=== PATIENT | female | born 1955 | race Caucasian/White ===

== ENCOUNTER → 2017-01-28 | Outpatient (CLI) | payer MEDICAID ==
[2017-01-28 10:00] LABS: Basophils # (A) 0.1 k/uL (0-0.2); Basophils % (A) 1 %; CH 30.5; CHCM 33.4; Eosinophils # (A) 0.2 k/uL (0-0.7); Eosinophils % (A) 2 %; HCT 42.3 % (34.0-46.0); HDW 2.36; HGB 13.8 gm/dL (11.4-16.0); Luc # (Auto) 0.17; Luc % (Auto) 2; Lymphocytes % (A) 22 %; MCH 29.9 pg (25.0-35.0); MCHC 32.6 g/dL (31.0-37.0); MCV 91.8 fL (80.0-100.0); Mean Platelet Volume 6.7; Monocytes # (A) 0.4 k/uL (0-1.0); Monocytes % (A) 4 %; Neutrophils % (A) 69 %; RBC 4.61 m/uL (3.80-5.40); RDW 14.2 % (11.5-15.5); WBC 8.7 k/uL (3.8-10.6); WBC (Perox) 8.61
[2017-01-28 10:24] LABS: ALT 30 U/L (9-52); AST 23 U/L (14-36); Alkaline Phosphatase 93 U/L (38-126); Anion Gap 12 mmol/L; Blood Urea Nitrogen 15 mg/dL (7-17); Calcium 9.8 mg/dL (8.4-10.2); Carbon Dioxide 27 mmol/L (22-30); Chloride 103 mmol/L (98-107); Cholesterol 227 mg/dL (<200); Glucose 100 mg/dL (74-99); HDL Cholesterol 75 mg/dL (40-60); Non-African American GFR(MDRD) >60 (>60 ml/min/1.73 sqM); Potassium 4.7 mmol/L (3.5-5.1); Sodium 142 mmol/L (137-145); Total Bilirubin 0.5 mg/dL (0.2-1.3); Total Protein 7.3 g/dL (6.3-8.2); Triglycerides 106 mg/dL (<150)
== END | disposition home or self-care (01) ==
LOC: LABWHC1 09:17
PROVIDERS: ATTEND Internal Medicine Geriatric Medicine
DX: E78.5 Hyperlipidemia, unspecified (principal); E55.9 Vitamin D deficiency, unspecified; E06.3 Autoimmune thyroiditis
CPT/HCPCS: 36415; 80053; 80061; 82306; 84439; 84443; 85025

== ENCOUNTER → 2017-02-12 | Outpatient (CLI) | payer MEDICAID ==
--- NOTE | 2017-02-12 09:25 | USB ---
Reason for exam: follow-up at short interval from prior study. History: Patient is postmenopausal and has history of breast cancer at age 50. Benign US biopsy breast VAD RT of the right breast, July 19, 2015. Silicone gel implant in the left breast, 2011. Reduction of the right breast, 2011. Malignant lumpectomy of the left breast, April 03, 2006. Malignant excisional biopsy of the left breast, March 16, 2006. Benign left US cyst aspiration of the left breast, February 19, 2006. Malignant US left guided mammotome of the left breast, February 12, 2006. Stereotactic core biopsy, August 11, 2002. Reduction of the right breast. Radiation therapy. Took hormonal contraceptives for 3 years beginning at age 21. Took tamoxifen for 5 years beginning at age 51. Physical Findings: Nurse did not find any significant physical abnormalities on exam. US Breast LT Left breast ultrasound includes all four quadrants, the retroareolar region and axilla. Finding demonstrates a 2.3 x 0.4 x 0.9cm oval, cystic lesion at 3 o'clock, seen on previous, adjacent to implant without internal change. These results were verbally communicated with the patient and result sheet given to the patient on 02/12/17. ASSESSMENT: Benign, BI-RAD 2 RECOMMENDATION: Return to routine screening mammogram schedule for both breasts. Back on schedule.
== END | disposition home or self-care (01) ==
LOC: RADUSWWP 08:23
PROVIDERS: ATTEND Internal Medicine Geriatric Medicine
DX: Z08 Encounter for follow-up examination after completed treatment for malignant neoplasm (principal); Z85.3 Personal history of malignant neoplasm of breast

== ENCOUNTER → 2018-01-05 | Outpatient (CLI) | payer MEDICAID ==
[2018-01-05 10:37] LABS: Basophils # (A) 0.1 k/uL (0-0.2); Basophils % (A) 1 %; Eosinophils # (A) 0.2 k/uL (0-0.7); Eosinophils % (A) 3 %; HCT 40.7 % (34.0-46.0); HGB 13.3 gm/dL (11.4-16.0); Lymphocytes # (A) 1.6 k/uL (1.0-4.8); Lymphocytes % (A) 23 %; MCH 29.2 pg (25.0-35.0); MCHC 32.6 g/dL (31.0-37.0); MCV 89.5 fL (80.0-100.0); Mean Platelet Volume 6.6; Monocytes # (A) 0.5 k/uL (0-1.0); Monocytes % (A) 6 %; Neutrophils # (A) 4.6 k/uL (1.3-7.7); Neutrophils % (A) 65 %; Platelet Count 303 k/uL (150-450); RBC 4.55 m/uL (3.80-5.40); RDW 14.5 % (11.5-15.5)
[2018-01-05 11:01] LABS: Albumin 4.7 g/dL (3.5-5.0); Calcium 9.8 mg/dL (8.4-10.2); Potassium 4.7 mmol/L (3.5-5.1); Total Bilirubin 0.4 mg/dL (0.2-1.3); Total Protein 7.2 g/dL (6.3-8.2)
[2018-01-05 11:17] LABS: T4, Free (Free Thyroxine) 0.92 ng/dL (0.78-2.19)
[2018-01-05 18:22] LABS: Hemoglobin A1C 5.7 % (4.0-6.0)
== END | disposition home or self-care (01) ==
LOC: LABWHC1 09:16
PROVIDERS: ATTEND Internal Medicine Geriatric Medicine
DX: Z00.00 Encounter for general adult medical examination without abnormal findings (principal); E55.9 Vitamin D deficiency, unspecified; E06.3 Autoimmune thyroiditis; E78.5 Hyperlipidemia, unspecified; R79.9 Abnormal finding of blood chemistry, unspecified
CPT/HCPCS: 36415; 80053; 80061; 82306; 83036; 84439; 84443; 85025

== ENCOUNTER → 2018-01-07 | Day surgery (SDC) | payer MEDICAID ==
[2018-01-06 08:33] VITALS: BMI 27.8
[~2018-01-07] MED LIST: LACTATED RINGERS 1,000 ML IV SCH; LIDOCAINE 1% 20 ML VIAL (10MG/ML) FOR IV START INTRADERMA PRN; LIDOCAINE 1% INJ 10MG/ML (20 ML MDV) ONE; MIDAZOLAM 2 MG/2 ML VIAL IV PRN; PROPOFOL 10 MG/ML 20 ML VIAL IV ONE
[2018-01-07 10:00] VITALS: RESP 18; TEMP 97
--- NOTE | 2018-01-07 10:47 | P.PCN ---
Date of Procedure: 01/07/18 Procedure(s) Performed: BRIEF HISTORY: Patient is a 62-year-old pleasant white female, scheduled for an elective colonoscopy as a part of screening for colorectal neoplasia. She has family history of colon cancer diagnosed in her brother at age 41. PROCEDURE PERFORMED: Colonoscopy with snare polypectomy. PREOPERATIVE DIAGNOSIS: screening for colon cancer/family history of colon cancer IV sedation per Anesthesia. PROCEDURE: After informed consent was obtained, the patient, was brought into the endoscopy unit. IV sedation was administered by Anesthesia under continuous monitoring. Digital rectal examination was normal. Initially the Olympus CF- 160 flexible video colonoscope was then inserted in the rectum, gradually advanced into the cecum without any difficulty. Careful examination was performed as the scope was gradually being withdrawn. Ileocecal valve and the appendiceal orifice were visualized and appeared normal. Prep was excellent. Mucosa of the cecum, ascending colon appeared normal. In the hepatic flexure there were 3 polyps noted. Each measured 5 mm and 1 cm in size which were removed by snare polypectomy. The polyp measured 2 cm which was linear and flat removed by piecemeal snare polypectomy. The rest of the, transverse colon , descending colon, sigmoid colon, and rectum appeared normal. Retroflexion was performed in the rectum and no lesions were seen. The patient tolerated the procedure well. IMPRESSION: 2 cm linear flat polyp, 5 mm and 1 cm sessile polyps in the hepatic flexure status post polypectomy Rest of the colon appeared normal RECOMMENDATIONS: Findings of this examination were discussed with the patient well as her family. She was advised to follow with the biopsy doesn't have a repeat colonoscopy in 3 years..
[2018-01-07 11:03] VITALS: BP 149/77; PULSE 66
== END ==
LOC: ORWHC2ENDO 09:18
PROVIDERS: ATTEND Internal Medicine Gastroenterology
DX: Z12.11 Encounter for screening for malignant neoplasm of colon (principal); D12.3 Benign neoplasm of transverse colon; K63.5 Polyp of colon; Z80.0 Family history of malignant neoplasm of digestive organs; E07.9 Disorder of thyroid, unspecified; F39 Unspecified mood [affective] disorder; Z79.890 Hormone replacement therapy; Z79.899 Other long term (current) drug therapy
CPT/HCPCS: 88305; 45385; J2001; J2704; 45380

== ENCOUNTER → 2018-01-29 | Outpatient (CLI) | payer MEDICAID ==
--- NOTE | 2018-02-02 08:02 | MM ---
Reason for exam: screening (asymptomatic). Last mammogram was performed 1 year and 6 months ago. History: Patient is postmenopausal and has history of breast cancer at age 50. Benign US biopsy breast VAD RT of the right breast, July 19, 2015. Silicone gel implant in the left breast, 2011. Reduction of the right breast, 2011. Malignant lumpectomy of the left breast, April 03, 2006. Malignant excisional biopsy of the left breast, March 16, 2006. Benign left US cyst aspiration of the left breast, February 19, 2006. Malignant US left guided mammotome of the left breast, February 12, 2006. Stereotactic core biopsy, August 11, 2002. Reduction of the right breast. Radiation therapy. Took hormonal contraceptives for 3 years beginning at age 21. Took tamoxifen for 5 years beginning at age 51. Physical Findings: A clinical breast exam by your physician is recommended on an annual basis and results should be correlated with mammographic findings. MG 3D Screen Mammo Imp/Cad Bilateral CC and MLO view(s) were taken. ID view(s) were taken of the left breast. Prior study comparison: July 16, 2016, bilateral MG 3d screen mammo imp/cad. July 19, 2015, right breast MG diagnostic mammo RT wo CAD. There are scattered fibroglandular densities. Previous mammotome biopsy in the right breast. There is chronic nodularity in the right breast. Post surgical changes left breast with silicone breast implant. No significant changes when compared with prior studies. ASSESSMENT: Benign, BI-RAD 2 RECOMMENDATION: Routine screening mammogram of both breasts in 1 year.
== END | disposition home or self-care (01) ==
LOC: RADMAMWWP 08:27
PROVIDERS: ATTEND Internal Medicine Geriatric Medicine
DX: Z12.31 Encounter for screening mammogram for malignant neoplasm of breast (principal)
CPT/HCPCS: 77063; 77067

== ENCOUNTER → 2018-12-22 | Outpatient (CLI) | payer MEDICAID ==
[2018-12-22 16:47] LABS: Anti-DNA, DS unit <1.0 IU/mL; Centromere Antibody Interp NEGATIVE (NEGATIVE); DNA Double-Stranded NEGATIVE (NEGATIVE); RNP <0.2 AI; Scleroderma SC-70 Ab <0.2 AI
[2018-12-22 16:57] LABS: Anion Gap 10.6 mmol/L (4.00-12.00); C Reactive Protein 1.6 mg/dL (0.0-0.8); Carbon Dioxide 21.4 mmol/L (21.6-31.8); Potassium 4.6 mmol/L (3.5-5.5)
[2018-12-22 17:05] LABS: T4, Free (Free Thyroxine) 1.2 ng/dL (0.80-1.80)
[2018-12-22 17:31] LABS: Rheumatoid Factor 7 IU/mL (0-15)
== END | disposition home or self-care (01) ==
LOC: LABWHC1 08:16
PROVIDERS: ATTEND Internal Medicine Critical Care Medicine
DX: M62.9 Disorder of muscle, unspecified (principal)
CPT/HCPCS: 36415; 80048; 82550; 84439; 84443; 85652; 86038; 86140; 86225; 86235; 86431

== ENCOUNTER → 2019-01-01 | Outpatient (CLI) | payer MEDICAID | END | disposition home or self-care (01) | LOC: LABWHC1 11:02 | PROVIDERS: ATTEND Internal Medicine | DX: E06.3 Autoimmune thyroiditis (principal) | CPT/HCPCS: 36415; 84445; 86376 ==

== ENCOUNTER → 2019-01-10 | Outpatient (CLI) | payer MEDICAID ==
--- NOTE | 2019-01-10 19:14 | US ---
EXAMINATION TYPE: US thyroid st tissue head/neck DATE OF EXAM: 01/10/2019 COMPARISON: NONE CLINICAL HISTORY: E06.3 Autoimmune thyroiditis. autoimmune thyroiditis GLAND SIZE: Right Lobe: 2.6 x 1.1 x 1.3 cm Overall Parenchyma: heterogenous Left Lobe: 2.7 x 1.1 x 1.0 cm Overall Parenchyma: heterogeneous Isthmus Thickness: 0.2 cm NODULES RIGHT: # of nodules measured on right: 0 LEFT: # of nodules measured on left: 0 ISTHMUS: # of nodules measured in the isthmus: 0 Bilateral neck scanned, no evidence of lymphadenopathy. IMPRESSION: Heterogenous thyroid gland is in keeping with this patient's provided history of thyroiditis. No disc rete nodule is seen.
== END | disposition home or self-care (01) ==
LOC: RADUSWWP 16:59
PROVIDERS: ATTEND Internal Medicine
DX: E06.3 Autoimmune thyroiditis (principal)
CPT/HCPCS: 76536

== ENCOUNTER → 2019-01-31 | Outpatient (CLI) | payer MEDICAID ==
--- NOTE | 2019-02-01 09:12 | MM ---
Reason for exam: screening (asymptomatic). Last mammogram was performed 1 year ago. History: Patient is postmenopausal and has history of breast cancer at age 50. Benign US biopsy breast VAD RT of the right breast, July 19, 2015. Silicone gel implant in the left breast, 2011. Reduction of the right breast, 2011. Malignant lumpectomy of the left breast, April 03, 2006. Malignant excisional biopsy of the left breast, March 16, 2006. Benign left US cyst aspiration of the left breast, February 19, 2006. Malignant US left guided mammotome of the left breast, February 12, 2006. Stereotactic core biopsy, August 11, 2002. Reduction of the right breast. Radiation therapy. Took hormonal contraceptives for 3 years beginning at age 21. Took tamoxifen for 5 years beginning at age 51. Physical Findings: A clinical breast exam by your physician is recommended on an annual basis and results should be correlated with mammographic findings. MG 3D Screen Mammo Imp/Cad Bilateral CC and MLO view(s) were taken. Prior study comparison: January 29, 2018, bilateral MG 3d screen mammo imp/cad. July 16, 2016, bilateral MG 3d screen mammo imp/cad. The breast tissue is heterogeneously dense. This may lower the sensitivity of mammography. Finding #1: Architectural distortion in the left breast consistent with previous surgery. Finding #2: There are typically benign calcifications in both breasts. There are benign appearing calcifications. No significant changes in finding since January 29, 2018 and July 16, 2016. ASSESSMENT: Benign, BI-RAD 2 RECOMMENDATION: Routine screening mammogram of both breasts in 1 year.
== END | disposition home or self-care (01) ==
LOC: RADMAMWWP 12:54
PROVIDERS: ATTEND Internal Medicine
DX: Z12.31 Encounter for screening mammogram for malignant neoplasm of breast (principal)
CPT/HCPCS: 77063; 77067

== ENCOUNTER → 2019-02-18 | Outpatient (CLI) | payer MEDICAID ==
[2019-02-18 16:55] LABS: African American GFR (CKD) 61.9 (60.0-200.0); Albumin 4.5 g/dL (3.80-4.90); Albumin/Globulin Ratio 2.5 (1.60-3.17); BUN/Creat Ratio 18.18 Ratio (12.00-20.00); Calcium 9.2 mg/dL (8.7-10.3); Globulin 1.8 g/dL (1.6-3.3); LDL Cholesterol,Calculated 134.2 mg/dL (0.0-131.0); Potassium 4.3 mmol/L (3.5-5.5); Total Bilirubin 0.2 mg/dL (0.3-1.2); Total Protein 6.3 g/dL (6.2-8.2); VLDL Calculation 37.8 mg/dL (5.00-40.00)
== END | disposition home or self-care (01) ==
LOC: LABWHC1 08:08
PROVIDERS: ATTEND Internal Medicine
DX: E78.5 Hyperlipidemia, unspecified (principal); E06.3 Autoimmune thyroiditis; M35.3 Polymyalgia rheumatica; I10 Essential (primary) hypertension
CPT/HCPCS: 36415; 80053; 80061; 84443; 85652; 86140

== ENCOUNTER → 2019-08-23 | Outpatient (CLI) | payer MEDICAID ==
[2019-08-23 08:53] LABS: Anisocytosis Slight; Basophils % (A) 0 %; Eosinophils # (A) 0.3 k/uL (0-0.7); Eosinophils % (A) 4 %; HCT 31.7 % (34.0-46.0); HGB 9.2 gm/dL (11.4-16.0); Hypochromasia Marked; Lymphocytes # (A) 1.5 k/uL (1.0-4.8); Lymphocytes % (A) 21 %; MCH 22.3 pg (25.0-35.0); MCV 76.9 fL (80.0-100.0); Mean Platelet Volume 6.9; Microcytosis Slight; Monocytes # (A) 0.3 k/uL (0-1.0); Monocytes % (A) 5 %; Neutrophils # (A) 4.8 k/uL (1.3-7.7); Neutrophils % (A) 68 %; Platelet Count 375 k/uL (150-450); RBC 4.12 m/uL (3.80-5.40); RDW 16.5 % (11.5-15.5)
[2019-08-23 12:02] LABS: Erythrocyte Sedimentation Rate 17 mm/hr (0-20)
[2019-08-23 17:10] LABS: African American GFR (CKD) 69.4 (60.0-200.0); Albumin 4.5 g/dL (3.80-4.90); Anion Gap 8.5 mmol/L (4.00-12.00); C Reactive Protein 0.7 mg/dL (0.0-0.8); Carbon Dioxide 24.5 mmol/L (21.6-31.8); Chol/HDL Ratio 3.78; Globulin 1.5 g/dL (1.6-3.3); Non-African American GFR(CKD) 59.9 (60.0-200.0); Potassium 4.3 mmol/L (3.5-5.5); Total Bilirubin 0.3 mg/dL (0.3-1.2)
[2019-08-23 17:17] LABS: T4, Free (Free Thyroxine) 1.3 ng/dL (0.80-1.80)
[2019-08-23 17:26] LABS: Hemoglobin A1C 6.1 % (4.0-6.0)
== END | disposition home or self-care (01) ==
LOC: LABWHC1 08:05
PROVIDERS: ATTEND Internal Medicine Geriatric Medicine
DX: Z00.00 Encounter for general adult medical examination without abnormal findings (principal); M35.3 Polymyalgia rheumatica; E78.5 Hyperlipidemia, unspecified; R73.9 Hyperglycemia, unspecified; E06.3 Autoimmune thyroiditis; E55.9 Vitamin D deficiency, unspecified
CPT/HCPCS: 36415; 80053; 80061; 82306; 83036; 84439; 84443; 85025; 85652; 86140

== ENCOUNTER → 2020-04-10 | Outpatient (CLI) | payer OTHER ==
--- NOTE | 2020-04-11 16:27 | BD ---
EXAMINATION TYPE: Axial Bone Density DATE OF EXAM: 04/10/2020 COMPARISON: NONE CLINICAL HISTORY: Postmenopausal screening Height: 63 Weight: 152.8 FRAX RISK QUESTIONS: Alcohol (3 or more units per day): no Family History (Parent hip fracture): no Glucocorticoids (More than 3mos): no (Ex: prednisone, prednisolone, methylprednisolone, dexamethasone, and hydrocortisone). History of Fracture in Adulthood: no Secondary Osteoporosis: 1. Type 1 Diabetes: no 2. Hyperthyroidism: no 3. Menopause before 45: no 4. Malnutrition: no 5. Chronic liver disease: no Rheumatoid Arthritis: no Current Tobacco Use: yes RISK FACTORS HISTORY OF: Family History of Osteoporosis: no Active: yes Diet low in dairy products/other sources of calcium: yes Postmenopausal woman: age 50 Lost more than 2 inches in height since high school: no MEDICATIONS: iron pill, vitamins , Thyroid Medications: thyroid How Lon years Additional History: EXAM MEASUREMENTS: Bone mineral densitometry was performed using the [employer] System. Bone mineral density as measured about the Lumbar spine is: ----- L1-L4(G/cm2): 1.315 T Score Values are as follows: ----- L2: 0.8 ----- L3: 1.4 ----- L4: 0.9 ----- L1-L4: 1.1 Bone mineral density has: decreased -2.1 % since study of: 06.29.2015 Bone mineral density about the R hip (g/cm2): 0.965 Bone mineral density about the L hip (g/cm2): 0.983 T Score values are as follows: -----R Neck: -0.5 -----L Neck: -0.4 -----R Total: 0.0 -----L Total: 0.4 Bone mineral density has: decreased -3.7 % since study of: 06.29.2015 IMPRESSION: Normal (Values between +1 and -1 indicate normal bone mass). Consider repeating this study in 5 year s or sooner if there is some new clinical indication. NOTE: T-SCORE=SD OF THE YOUNG ADULT MEAN.
--- NOTE | 2020-04-12 08:42 | MM ---
Reason for exam: screening (asymptomatic). Last mammogram was performed 1 year and 2 months ago. History: Patient is postmenopausal and has history of breast cancer at age 50. Benign US biopsy breast VAD RT of the right breast, July 19, 2015. Silicone gel implant in the left breast, 2011. Reduction of the right breast, 2011. Malignant lumpectomy of the left breast, April 03, 2006. Malignant excisional biopsy of the left breast, March 16, 2006. Benign left US cyst aspiration of the left breast, February 19, 2006. Malignant US left guided mammotome of the left breast, February 12, 2006. Stereotactic core biopsy, August 11, 2002. Reduction of the right breast. Radiation therapy. Took hormonal contraceptives for 3 years beginning at age 21. Took tamoxifen for 5 years beginning at age 51. Physical Findings: A clinical breast exam by your physician is recommended on an annual basis and results should be correlated with mammographic findings. MG 3D Screen Mammo Imp/Cad Bilateral CC, MLO, and ID view(s) were taken. Prior study comparison: January 31, 2019, bilateral MG 3d screen mammo imp/cad. January 29, 2018, bilateral MG 3d screen mammo imp/cad. February 12, 2017, left breast US breast LT. July 19, 2015, right breast MG diagnostic mammo RT wo CAD. There are scattered fibroglandular densities. There is chronic nodularity in the right breast. Post surgical and post therapy change left breast with a retropectoral silicone implant. Increasing calcifications central posterior left breast. ASSESSMENT: Incomplete: need additional imaging evaluation, BI-RAD 0 RECOMMENDATION: Special view mammogram of the left breast. (Magnification) If lesion persists on supplemental views, image directed ultrasound is recommended. [facility] will attempt to contact patient to return for supplemental views and ultrasound if indicated.
== END | disposition home or self-care (01) ==
LOC: RADMAMWWP 15:25
PROVIDERS: ATTEND Obstetrics & Gynecology
DX: Z12.31 Encounter for screening mammogram for malignant neoplasm of breast (principal); N95.1 Menopausal and female climacteric states
CPT/HCPCS: 77063; 77067; 77080

== ENCOUNTER → 2020-05-17 | Outpatient (CLI) | payer OTHER ==
--- NOTE | 2020-05-18 10:05 | MM ---
Reason for exam: additional evaluation requested from abnormal screening. Last mammogram was performed 1 month ago. History: Patient is postmenopausal and has history of breast cancer at age 50. Benign US biopsy breast VAD RT of the right breast, July 19, 2015. Silicone gel implant in the left breast, 2011. Reduction of the right breast, 2011. Malignant lumpectomy of the left breast, April 03, 2006. Malignant excisional biopsy of the left breast, March 16, 2006. Benign left US cyst aspiration of the left breast, February 19, 2006. Malignant US left guided mammotome of the left breast, February 12, 2006. Stereotactic core biopsy, August 11, 2002. Reduction of the right breast. Radiation therapy. Took hormonal contraceptives for 3 years beginning at age 21. Took tamoxifen for 5 years beginning at age 51. Physical Findings: Nurse did not find any significant physical abnormalities on exam. MG 3D Work Up W/Cad LT CC with magnification, MLO with magnification, and LM view(s) were taken of the left breast. Prior study comparison: April 10, 2020, bilateral MG 3d screen mammo imp/cad. January 31, 2019, bilateral MG 3d screen mammo imp/cad. Finding: There are typically benign segmental, linear calcifications in the left breast. No significant changes in finding since April 10, 2020 and January 31, 2019. These results were verbally communicated with the patient and result sheet given to the patient on 05/17/20. ASSESSMENT: Benign, BI-RAD 2 RECOMMENDATION: Return to routine screening mammogram schedule for both breasts.
== END | disposition home or self-care (01) ==
LOC: RADMAMWWP 13:47
PROVIDERS: ATTEND Obstetrics & Gynecology
DX: R92.8 Other abnormal and inconclusive findings on diagnostic imaging of breast (principal)
CPT/HCPCS: 77061; 77065

== ENCOUNTER → 2021-05-20 | Outpatient (CLI) | payer MEDICARE ==
--- NOTE | 2021-05-21 11:14 | MM ---
Reason for exam: screening (asymptomatic). Last mammogram was performed 1 year ago. History: Patient is postmenopausal and has history of breast cancer at age 50. Benign US biopsy breast VAD RT of the right breast, July 19, 2015. Silicone gel implant in the left breast, 2011. Reduction of the right breast, 2011. Malignant lumpectomy of the left breast, April 03, 2006. Malignant excisional biopsy of the left breast, March 16, 2006. Benign left US cyst aspiration of the left breast, February 19, 2006. Malignant US left guided mammotome of the left breast, February 12, 2006. Stereotactic core biopsy, August 11, 2002. Reduction of the right breast. Radiation therapy. Took hormonal contraceptives for 3 years beginning at age 21. Took tamoxifen for 5 years beginning at age 51. Physical Findings: A clinical breast exam by your physician is recommended on an annual basis and results should be correlated with mammographic findings. MG 3D Screen Mammo Imp/Cad Bilateral CC, MLO, and ID view(s) were taken. Prior study comparison: April 10, 2020, bilateral MG 3d screen mammo imp/cad. January 31, 2019, bilateral MG 3d screen mammo imp/cad. January 29, 2018, bilateral MG 3d screen mammo imp/cad. July 16, 2016, bilateral MG 3d screen mammo imp/cad. There are scattered fibroglandular densities. No significant changes when compared with prior studies. ASSESSMENT: Benign, BI-RAD 2 RECOMMENDATION: Routine screening mammogram of both breasts in 1 year.
== END | disposition home or self-care (01) ==
LOC: RADMAMWWP 11:35
PROVIDERS: ATTEND Obstetrics & Gynecology
DX: Z12.31 Encounter for screening mammogram for malignant neoplasm of breast (principal); Z85.3 Personal history of malignant neoplasm of breast
CPT/HCPCS: 77063; 77067

== ENCOUNTER → 2021-07-29 | Outpatient (CLI) | payer MEDICARE ==
[2021-07-29 15:48] LABS: Basophils # (A) 0.05 X 10*3/uL (0.00-0.10); Basophils % (A) 0.6 %; Eosinophils # (A) 0.22 X 10*3/uL (0.04-0.35); Eosinophils % (A) 2.7 %; HCT 39.5 % (37.2-46.3); HGB 12.1 g/dL (12.0-15.0); Lymphocytes # (A) 2.09 X 10*3/uL (0.90-5.00); Lymphocytes % (A) 25.9 %; MCHC 30.6 g/dL (32.0-37.0); MCV 94.7 fL (80.0-97.0); Mean Platelet Volume 9.9 fL (9.5-12.2); Monocytes # (A) 0.57 X 10*3/uL (0.20-1.00); Monocytes % (A) 7.1 %; Neutrophils # (A) 5.11 X 10*3/uL (1.80-7.70); Neutrophils % (A) 63.2 %; Platelet Count 301 X 10*3/uL (140-440); RBC 4.17 X 10*6/uL (4.10-5.20); RDW 14.4 % (11.5-14.5); WBC 8.08 X 10*3/uL (4.50-10.00)
[2021-07-29 16:28] LABS: ALT 23 U/L (8-44); AST 22 U/L (13-35); African American GFR (CKD) 84.9 (60.0-200.0); Albumin 4.5 g/dL (3.8-4.9); Albumin/Globulin Ratio 2.51 (1.60-3.17); Alkaline Phosphatase 101 U/L (41-126); BUN/Creat Ratio 17.92 Ratio (12.00-20.00); Calcium 9.3 mg/dL (8.7-10.3); Carbon Dioxide 24.3 mmol/L (20.0-27.5); Chloride 106 mmol/L (96-109); Chol/HDL Ratio 3.94 Ratio; Globulin 1.8 g/dL (1.6-3.3); Glucose 104 mg/dL (70-110); LDL Cholesterol,Calculated 166.9 mg/dL (0.0-131.0); Non-African American GFR(CKD) 73.3 (60.0-200.0); Potassium 4.5 mmol/L (3.5-5.5); Sodium 143 mmol/L (135-145); Total Protein 6.4 g/dL (6.2-8.2)
== END | disposition home or self-care (01) ==
LOC: LABWHC1 10:18
PROVIDERS: ATTEND Internal Medicine Geriatric Medicine
DX: E06.3 Autoimmune thyroiditis (principal); E78.5 Hyperlipidemia, unspecified
CPT/HCPCS: 36415; 80053; 80061; 84439; 84443; 85025

== ENCOUNTER → 2022-02-28 | Outpatient (CLI) | payer MEDICARE ==
[2022-02-28 14:17] LABS: Basophils # (A) 0.08 X 10*3/uL (0.00-0.10); Eosinophils # (A) 0.25 X 10*3/uL (0.04-0.35); Eosinophils % (A) 3.2 %; HCT 39.3 % (37.2-46.3); Immature Grans, Automated 0.5 %; Lymphocytes # (A) 2.46 X 10*3/uL (0.90-5.00); Lymphocytes % (A) 31.9 %; MCH 28.4 pg (27.0-32.0); MCHC 30.5 g/dL (32.0-37.0); MCV 92.9 fL (80.0-97.0); Mean Platelet Volume 10.7 fL (9.5-12.2); Monocytes # (A) 0.65 X 10*3/uL (0.20-1.00); Monocytes % (A) 8.4 %; NRBC Per 100 WBC 0 /100 WBCS (0.0-0.0); Neutrophils # (A) 4.22 X 10*3/uL (1.80-7.70); Platelet Count 352 X 10*3/uL (140-440); RBC 4.23 X 10*6/uL (4.10-5.20); RDW 15.9 % (11.5-14.5)
[2022-02-28 14:42] LABS: ALT 19 U/L (8-44); AST 24 U/L (13-35); African American GFR (CKD) 77.2 (60.0-200.0); Albumin 4.6 g/dL (3.8-4.9); Alkaline Phosphatase 89 U/L (41-126); BUN/Creat Ratio 18.11 Ratio (12.00-20.00); Blood Urea Nitrogen 16.3 mg/dL (9.0-27.0); Calcium 9.3 mg/dL (8.7-10.3); Carbon Dioxide 21.1 mmol/L (20.0-27.5); Chloride 106 mmol/L (96-109); Chol/HDL Ratio 3.76 Ratio; Globulin 2.3 g/dL (1.6-3.3); Glucose 109 mg/dL (70-110); LDL Cholesterol,Calculated 134.8 mg/dL (0.0-131.0); Non-African American GFR(CKD) 66.6 (60.0-200.0); Potassium 4.4 mmol/L (3.5-5.5); Sodium 139 mmol/L (135-145); Total Protein 6.9 g/dL (6.2-8.2)
== END | disposition home or self-care (01) ==
LOC: LABWHC1 09:20
PROVIDERS: ATTEND Internal Medicine Geriatric Medicine
DX: C50.919 Malignant neoplasm of unspecified site of unspecified female breast (principal); E78.5 Hyperlipidemia, unspecified; E03.9 Hypothyroidism, unspecified
CPT/HCPCS: 36415; 80053; 80061; 84439; 84443; 85025

== ENCOUNTER → 2022-06-09 | Outpatient (CLI) | payer MEDICARE ==
--- NOTE | 2022-06-10 08:55 | MM ---
Reason for Exam: Screening (asymptomatic). Last mammogram was performed 1 year(s) and 1 month(s) ago. Patient History: Menarche at age 12. First Full-Term at age 25. Postmenopausal. Breast cancer, age 50. Hormonal Contraceptives for 3 years from age 21 until age 24. Tamoxifen for 5 years from age 51 until age 56. 03/16/2006, Malignant Excisional Biopsy on the left side. 04/03/2006, Malignant Lumpectomy on the left side. 2011, Reduction on the Right side. Reduction on the Right side. 07/19/2015, Benign Core Biopsy on the right side. 02/19/2006, Benign Cyst Aspiration on the left side. 02/12/2006, Malignant Core Biopsy on the left side. 08/11/2002, Stereotactic Core Biopsy. Radiation Therapy. 2011, Implant on the left side. Prior Study Comparison: 04/10/2020 Bilateral Screening Mammogram, [facility]. 05/17/2020 Left Diagnostic Mammogram, [facility]. 05/20/2021 Bilateral Screening Mammogram, [facility]. Tissue Density: There are scattered fibroglandular densities. Findings: Analyzed By CAD. Postsurgical changes of the left breast. Biopsy clip in the right breast. There is no suspicious group of microcalcifications or new suspicious mass in either breast. Overall Assessment: Negative, BI-RAD 1 Management: Screening Mammogram of both breasts in 1 year. A clinical breast exam by your physician is recommended on an annual basis and results should be correlated with mammographic findings. [facility] will attempt to contact patient to return for supplemental views and ultrasound if indicated. Electronically signed and approved by: Alan Padilla DO
== END | disposition home or self-care (01) ==
LOC: RADMAMWWP 14:52
PROVIDERS: ATTEND Obstetrics & Gynecology
DX: Z12.31 Encounter for screening mammogram for malignant neoplasm of breast (principal); Z78.0 Asymptomatic menopausal state; Z98.890 Other specified postprocedural states
CPT/HCPCS: 77063; 77067

== ENCOUNTER → 2023-02-13 | Outpatient (CLI) | payer MEDICARE, BC ==
[2023-02-13 18:09] LABS: Alternaria alternata IgE <0.10 kU/L
[2023-02-13 18:10] LABS: Aspergillus fumagatus IgE <0.10 kU/L; Birch IgE <0.10 kU/L; Cat Epith & Dander IgE <0.10 kU/L; Dermato. farinae IgE <0.10 kU/L; Dog Dander IgE <0.10 kU/L; Elm IgE <0.10 kU/L; Oak IgE <0.10 kU/L; Ragweed,Common IgE <0.10 kU/L
== END | disposition home or self-care (01) ==
LOC: LABWHC1 11:26
PROVIDERS: ATTEND Internal Medicine
DX: J30.9 Allergic rhinitis, unspecified (principal)
CPT/HCPCS: 36415; 86003

== ENCOUNTER → 2023-06-01 | Outpatient (CLI) | payer MEDICARE, BC ==
--- NOTE | 2023-06-01 09:57 | MM ---
Reason for Exam: Hx of breast cancer, conservation therapy. Last screening mammogram was performed 11 month(s) ago. Patient History: Menarche at age 12. First Full-Term at age 25. Postmenopausal. Breast cancer, left, age 50. Previous chest radiation therapy at age 50. Hormonal Contraceptives for 3 years from age 21 until age 24. Tamoxifen for 5 years from age 51 until age 56. 03/16/2006, Malignant Excisional Biopsy on the left side. 04/03/2006, Malignant Lumpectomy on the left side. 2011, Reduction on the Right side. Reduction on the Right side. 07/19/2015, Benign Core Biopsy on the right side. 02/19/2006, Benign Cyst Aspiration on the left side. 02/12/2006, Malignant Core Biopsy on the left side. 08/11/2002, Stereotactic Core Biopsy. Radiation Therapy. 2011, Implant on the left side. Prior Study Comparison: 10/14/2013 Bilateral Diagnostic Mammogram, [facility]. 06/29/2015 Bilateral Diagnostic Mammogram, [facility]. 06/29/2015 Right Diagnostic Ultrasound, [facility]. 07/19/2015 Right Diagnostic Mammogram, [facility]. 07/16/2016 Bilateral Screening Mammogram, [facility]. 07/18/2016 Left Diagnostic Ultrasound, [facility]. 02/12/2017 Left Diagnostic Ultrasound, [facility]. 01/29/2018 Bilateral Screening Mammogram, [facility]. 01/31/2019 Bilateral Screening Mammogram, [facility]. 04/10/2020 Bilateral Screening Mammogram, [facility]. 05/17/2020 Left Diagnostic Mammogram, [facility]. 05/20/2021 Bilateral Screening Mammogram, [facility]. 06/09/2022 Bilateral MG 3D screen mammo imp/cad., [facility]. Tissue Density: There are scattered fibroglandular densities. Overall Assessment: Benign, BI-RAD 2 Management: Screening Mammogram of both breasts in 1 year. Electronically signed and approved by: Alan Padilla DO
--- NOTE | 2023-06-01 14:42 | NM ---
EXAMINATION TYPE: NM bone scan whole body DATE OF EXAM: 06/01/2023 1:50 PM CLINICAL INDICATION:Female, 67 years old with history of C50.619 breast ca; COMPARISON: CT chest 05/19/2023 TECHNIQUE: Intravenous administration 25.5 mCi Tc 99m MDP followed by multiple scintigraphic images o f the appendicular and axial skeleton. Images acquired 6 hours post injection. FINDINGS: No abnormal uptake is identified within the appendicular or axial skeleton to suggest metastatic dise ase. There is increased uptake within the bilateral shoulder, sternoclavicular, left knee, right midfoot, right first metatarsophalangeal joint and sacroiliac joints consistent with degenerative changes. No other photopenic areas or areas of increased activity are identified. Left posterior neck focus of u ptake projected over the left spine. Physiologic radiotracer activity is demonstrated in the kidneys and bladder. IMPRESSION: Single focus of uptake within the left posterior neck likely on degeneration bases. Consider correlat ion with CT C-spine. No other areas of suspicious uptake to suggest metastatic disease.
== END | disposition home or self-care (01) ==
LOC: RADNMMAIN 07:27
PROVIDERS: ATTEND Internal Medicine Geriatric Medicine
DX: C50.619 Malignant neoplasm of axillary tail of unspecified female breast (principal); R92.323 Mammographic fibroglandular density, bilateral breasts
CPT/HCPCS: 77066; 78306; G0279; A9503; 77062

== ENCOUNTER → 2023-07-16 | Outpatient (CLI) | payer MEDICARE, BC ==
--- NOTE | 2023-07-16 13:22 | BD ---
EXAMINATION TYPE: Axial Bone Density DATE OF EXAM: 07/16/2023 CLINICAL HISTORY: 67 years old Female. ICD-10 CODE: Z12.31 SCREENING MAMMO Height: 63 Weight: 162 FRAX RISK QUESTIONS: Glucocorticoids (More than 3mos): yes (Ex: prednisone, prednisolone, methylprednisolone, dexamethasone, and hydrocortisone). Current Tobacco Use: yes RISK FACTORS HISTORY OF: Postmenopausal woman: at 50 Hyperparathyroidism: no Adrenal Insufficiency: no MEDICATIONS: Prednisone or other steroids: yes, for copd, emphysema, for about 3 mos and prednisone for lungs and sinus Thyroid Medications: yes, for about 20 yrs Additional Medications: vitamins, FE tablet, hx of breast cancer with breast cancer, statin for aliyah sterol, vit d, reflux meds, Additional History: hx of breast cancer, cholesterol, low iron levels, EXAM MEASUREMENTS: Bone mineral densitometry was performed using the [employer] System. Bone mineral density as measured about the Lumbar spine is: ----- L1-L4(G/cm2): 1.347 T Score Values are as follows: ----- L1: 0.4 ----- L2: 0.7 ----- L3: 2.3 ----- L4: 1.6 ----- L1-L4: 1.4 Z Score Values are as follows: ----- L1: 1.8 ----- L2: 2.1 ----- L3: 3.6 ----- L4: 3.0 ----- L1-L4: 2.7 Bone mineral density has: Increased 6.5% since study of: 04.10.2020 Bone mineral density about the R hip (g/cm2): 0.983 Bone mineral density about the L hip (g/cm2): 1.026 T Score values are as follows: -----R Neck: -0.9 -----L Neck: -0.7 -----R Total: -0.2 -----L Total: 0.1 Z Score values are as follows: -----R Neck: 0.5 -----L Neck: 0.7 -----R Total: 0.9 -----L Total: 1.3 Bone mineral density has: Decreased -2.5% since study of: 04.10.2020 FRAX%s: The graph provided illustrates a 12.8% chance for a major osteoporotic fx and a 2.0% chance f or the hips probability for fx in 10 years time. IMPRESSION: Normal (Values between +1 and -1 indicate normal bone mass). Consider repeating this study in 5 year s or sooner if there is some new clinical indication. NOTE: T-SCORE=SD OF THE YOUNG ADULT MEAN.
== END | disposition home or self-care (01) ==
LOC: RADBDWWP 08:40
PROVIDERS: ATTEND Internal Medicine Geriatric Medicine
DX: M81.0 Age-related osteoporosis without current pathological fracture (principal); Z78.0 Asymptomatic menopausal state
CPT/HCPCS: 77080

== ENCOUNTER → 2024-04-05 | Outpatient (CLI) | payer MEDICARE, BC | END | disposition home or self-care (01) | LOC: LABWHC1 14:50 | PROVIDERS: ATTEND Dermatology MOHS-Micrographic Surgery | DX: L93.0 Discoid lupus erythematosus (principal) | CPT/HCPCS: 36415; 86038 ==

== ENCOUNTER → 2024-07-11 | Outpatient (CLI) | payer MEDICARE, BC ==
--- NOTE | 2024-07-11 21:58 | MM ---
Reason for Exam: Screening (asymptomatic). Last mammogram was performed 1 year(s) and 2 month(s) ago. Patient History: Menarche at age 12. First Full-Term at age 25. Postmenopausal. Breast cancer, left, age 50. Previous chest radiation therapy at age 50. Hormonal Contraceptives for 3 years from age 21 until age 24. Tamoxifen for 5 years from age 51 until age 56. 03/16/2006, Malignant Excisional Biopsy on the left side. 04/03/2006, Malignant Lumpectomy on the left side. 2011, Reduction on the Right side. Reduction on the Right side. 07/19/2015, Benign Core Biopsy on the right side. 02/19/2006, Benign Cyst Aspiration on the left side. 02/12/2006, Malignant Core Biopsy on the left side. 08/11/2002, Stereotactic Core Biopsy. 2005, Radiation Therapy on the left side. Radiation Therapy. 2011, Implant on the left side. Prior Study Comparison: 05/20/2021 Bilateral Screening Mammogram, [facility]. 06/09/2022 Bilateral MG 3D screen mammo imp/cad., [facility]. 06/01/2023 Bilateral MG 3D diag mammo imp w/cad PETER, [facility]. Tissue Density: There are scattered areas of fibroglandular density. Findings: Analyzed By CAD. Pattern is stable. Left breast is smaller than the right. Postsurgical changes are evident within the left breast. Chronic Nodularities within the right breast. Surgical clips and calcifications are within the left breast. No suspicious groups of microcalcifications, spiculated or lobular masses, architectural distortion or other secondary signs of malignancy are mammographically apparent. Overall Assessment: Benign, BI-RAD 2 Management: Screening Mammogram of both breasts in 1 year. A negative mammogram report should not preclude additional follow up of suspicious palpable abnormalities. Patient should continue monthly self breast exam. A clinical breast exam by your physician is recommended on an annual basis and results should be correlated with mammographic findings. Note on Betsy scores and lifetime risk: 1. A Betsy score greater than 3% is considered moderate risk. If this is the case, consider specialist referral to assess eligibility for a risk reducing agent. 2. If overall lifetime risk for the development of breast cancer is 20% or higher, the patient may qualify for future screening with alternating mammogram and breast MRI. [facility], , 07/11/2024 9:56 PM. Electronically signed and approved by: Bam Carlin D.O. Radiologis
== END | disposition home or self-care (01) ==
LOC: RADMAMWWP 15:07
PROVIDERS: ATTEND Internal Medicine Geriatric Medicine
DX: Z12.31 Encounter for screening mammogram for malignant neoplasm of breast (principal); Z78.0 Asymptomatic menopausal state; Z85.3 Personal history of malignant neoplasm of breast; R92.323 Mammographic fibroglandular density, bilateral breasts
CPT/HCPCS: 77063; 77067

== ENCOUNTER → 2024-09-02 | Outpatient (CLI) | payer MEDICARE, BC ==
[2024-09-02 15:12] LABS: Basophils # (A) 0.08 X 10*3/uL (0.00-0.10); Eosinophils # (A) 0.25 X 10*3/uL (0.04-0.35); Eosinophils % (A) 3.3 %; HCT 40.3 % (37.2-46.3); HGB 12.5 g/dL (12.0-15.0); Lymphocytes # (A) 2.12 X 10*3/uL (0.90-5.00); Lymphocytes % (A) 27.7 %; MCH 28.7 pg (27.0-32.0); MCV 92.6 FL (80.0-97.0); Monocytes # (A) 0.59 X 10*3/uL (0.20-1.00); Monocytes % (A) 7.7 %; NRBC Per 100 WBC 0 X 10*3/uL (0.00-0.01); Neutrophils # (A) 4.56 X 10*3/uL (1.80-7.70); Neutrophils % (A) 59.8 %; Platelet Count 346 X 10*3/uL (140-440); RBC 4.35 X 10*6/uL (4.10-5.20); RDW 15.2 % (11.5-14.5); WBC 7.64 X 10*3/uL (4.50-10.00)
[2024-09-02 15:28] LABS: ALT 32 U/L (8-44); AST 31 U/L (13-35); Albumin 4.4 g/dL (3.8-4.9); Alkaline Phosphatase 119 U/L (41-126); Blood Urea Nitrogen 12.7 mg/dL (9.0-27.0); Calcium 9.3 mg/dL (8.7-10.3); Carbon Dioxide 23.9 mmol/L (21.6-31.8); Chloride 107 mmol/L (96-109); Globulin 2.1 g/dL (1.6-3.3); Glucose 108 mg/dL (70-110); LDL Cholesterol,Calculated 100.7 mg/dL (0.0-131.0); Potassium 5.1 mmol/L (3.5-5.5); Sodium 142 mmol/L (135-145); T4, Free (Free Thyroxine) 1.14 ng/dL (0.80-1.80); Total Bilirubin 0.3 mg/dL (0.3-1.2); Total Protein 6.5 g/dL (6.2-8.2)
== END | disposition home or self-care (01) ==
LOC: LABWHC1 10:22
PROVIDERS: ATTEND Physician Assistant
DX: E78.5 Hyperlipidemia, unspecified (principal); E03.9 Hypothyroidism, unspecified; E55.9 Vitamin D deficiency, unspecified; R73.9 Hyperglycemia, unspecified
CPT/HCPCS: 36415; 80053; 80061; 82306; 83036; 84439; 84443; 85025

== ENCOUNTER → 2024-11-02 | Outpatient (CLI) | payer MEDICARE, BC ==
[2024-11-02 08:26] VITALS: BP 126/82; PULSE 86; RESP 16; TEMP 97.4
--- NOTE | 2024-11-02 09:43 | P.HPOB ---
History of Present Illness H&P Date: 11/02/24 Chief Complaint: The patient is here for her routine gynecologic exam. This is a 68-year-old G2, P2 with LMP of 2006. The patient is here to establish with this office. She previously saw Dr. Zamora for her gynecologic care and last saw him about 1 year ago. She has had regular Pap smears and denies any history of cervical problems. She experienced a strange right breast sensation when she coughed. She states it felt like there was a pop and it was very painful for the rest of the day; today it is not as painful and just feels slightly sore. Her most recent mammogram was on 07/11/2024 and was benign. About 1 week ago she also noticed a slight vaginal discharge with itching and burning. The discharge was whitish but not chunky. She felt that this was probably a yeast infection and self treated with Monistat 1. She has noticed improvement with the itching and burning, but still notices a slight colorless discharge. She denies having vaginal odor and also denies postmenopausal bleeding. Review of Systems The patient has gained 25 pounds over the last year. Attributes the weight gain to eating lots of junk food when she is stressed. She has been under a lot of stress. She denies respiratory, cardiac, or G.I. problems. Past Medical History Past Medical History: Cancer, Hypertension, Thyroid Disorder Additional Past Medical History / Comment(s): HX LEFT BREAST CANCER s/p LUMPECTOMY, RADIATION & TAMOXIFEN (2005). Vinny's with hypothyroidism. Left breast skin cancer. PAST EMAIL MARKETER HISTORY: She has no history of STDs. History of Any Multi-Drug Resistant Organisms: None Reported Past Surgical History: Breast Surgery Additional Past Surgical History / Comment(s): LEFT [id number], left breast reconstruction with implant right breast lift. D & C'S, COLONOSCOPY 2018(NEXT AT AGE 70). Nasal surgery and herniated disc surgery. Past Anesthesia/Blood Transfusion Reactions: No Reported Reaction Past Psychological History: Depression (Associated with stress.) Additional Psychological History / Comment(s): TAKES BUPROPION FOR MOOD. Smoking Status: Current every day smoker (Half pack per day. "CLOSET SMOKER") Past Alcohol Use History: Daily (3 bottles of wine per week.) Additional Past Alcohol Use History / Comment(s): SMOKES 1 1/2 PACKS PER WEEK. DRINKS 1-2 GLASSES WINE DAILY Past Drug Use History: None Reported Additional History: She has been since 1977. She cares for her mother who is in [facility]. Her has bladder cancer. - Past Family History Father Family Medical History: Cancer, Dementia, Hypertension Additional Family Medical History / Comment(s): RENAL CANCER. . Brother(s) Family Medical History: Cancer, Diabetes Mellitus, Hypertension Additional Family Medical History / Comment(s): COLON CANCER. Another brother has diabetes and hypertension. Mother Family Medical History: Coronary Artery Disease (CAD) Additional Family Medical History / Comment(s): Poor circulation. Medications and Allergies Home Medications Medication Instructions Recorded Confirmed Type Levothyroxine Sodium [Synthroid] 100 mcg PO DAILY 01/06/18 01/06/18 History Clobetasol Propionate [Clobetasol 1 spray TOPICAL DIRECTED 11/02/24 11/02/24 History Propionate 0.05%] Ergocalciferol [Vitamin D2 (1250 1 cap PO DAILY 11/02/24 11/02/24 History Mcg = 25539 Iu)] Fexofenadine/Pseudoephedrine 1 tab PO DAILY 11/02/24 11/02/24 History [Lyric-D 12 Hour Tablet] Fluticasone Nasal [place] [Flonase 1 spray NASAL DAILY 11/02/24 11/02/24 History Nasal [place]] Losartan [Cozaar] 25 mg PO DAILY 11/02/24 11/02/24 History Rosuvastatin [Crestor] 10 mg PO DAILY 11/02/24 11/02/24 History hydrOXYzine HCL 25 mg PO DAILY 11/02/24 11/02/24 History Allergies Allergy/AdvReac Type Severity Reaction Status Date / Time No Known Allergies Allergy Verified 11/02/24 08:10 Exam Vital Signs Temp Pulse Resp BP Pulse Ox 11/02/24 08:20 97.4 F L 86 16 126/82 99 Intake and Output 11/01/24 11/02/24 11/02/24 22:59 06:59 14:59 Other: Weight 80.739 kg Height 5 feet 3 inches, weight 178 pounds, BMI 31.5. This is a well-developed well-nourished white female who is alert and oriented times 3 in no acute distress. HEENT: Within normal limits. NECK: Supple without mass or thyromegaly. CHEST AND LUNGS: Clear to auscultation. HEART: Regular rate and rhythm. BREASTS: Are without mass or discharge. The breasts are nontender. There is a dimpled area at approximately the 2 o'clock position of the left breast consistent with her previous left breast lumpectomy. There is also a scar at approximately the 10 o'clock position of the left breast consistent with her removal of skin cancer. AXILLARY EXAM: Negative for adenopathy. BACK: Negative for CVA tenderness. ABDOMEN: Soft, mildly obese, nontender, without palpable masses. PELVIC EXAM: Normal external genitalia with mild to moderate atrophy. Cervix and vagina appear normal with mild atrophy. There is no unusual discharge. There is no evidence of prolapse. The uterus is midposition, nongravid size and nontender. There are no palpable adnexal masses or tenderness. RECTAL EXAM: Rectovaginal exam is negative for mass or tenderness and is negative for occult blood. EXTREMITIES: Nontender. IMPRESSION: 1. 68-year-old menopausal female planing of slight vaginal discharge partial improvement after using Monistat 1 week ago. No significant discharge is noted on exam today. 2. Right breast pain after coughing yesterday. No significant physical findings on exam today. 3. History of left breast cancer status post lumpectomy, radiation therapy, and 5 years of tamoxifen. There is no evidence of recurrence on exam today. PLAN: 1. Pap smear was performed. Per the patient she has no history of cervical problems and has had regular Pap smears done over the years through Dr. Zamora and Dr. Crespo. If this Pap smear is negative, we will plan on discontinuing Pap smears. 2. Self breast awareness was discussed with the patient. We have also discussed symptoms associated with inflammatory breast cancer. 3. Screening mammogram was last done on 07/11/2024 and was benign. This will be repeated after 1 year. Since she has not had much improvement with the pain in the right breast, this will be followed conservatively. Seeing pain or if she feels a lump. 4. Affirm vaginitis panel was obtained. 5. Osteoporosis prevention was discussed. I have stressed the importance of adequate calcium, vitamin D and regular exercise. Recommended amounts of calcium and vitamin D were also discussed. She had a normal bone density test on 07/16/2023. Plan on repeating this in approximately 2027. 6. She was advised to return in one year for her annual well woman exam and as needed.
[2024-11-03 14:55] LABS: Gardnerella Positive (Negative); Trichomonas Negative (Negative)
== END ==
LOC: WWCWWP 07:48
PROVIDERS: ATTEND Obstetrics & Gynecology
DX: Z01.419 Encounter for gynecological examination (general) (routine) without abnormal findings (principal); N64.4 Mastodynia; F17.200 Nicotine dependence, unspecified, uncomplicated; Z85.3 Personal history of malignant neoplasm of breast
CPT/HCPCS: 87480; 87510; 87660